=== PATIENT | female | born 1975 | race Caucasian/White ===

== ENCOUNTER → 2017-07-02 | Outpatient (REF) ==
[2017-07-02 21:39] LABS: THYROID STIMULATING HORMONE 2.76 uIU/mL (0.465-4.680)
== END ==
LOC: ZLAB.WCH 20:42
PROVIDERS: Nurse Practitioner Primary Care
DX: Z01.89 Encounter for other specified special examinations (principal)

== ENCOUNTER → 2018-04-12 | Outpatient (REF) | LOC: ZLAB.WCH 12:33 | DX: Z01.89 Encounter for other specified special examinations (principal) ==

== ENCOUNTER 2021-02-15 19:19 | Emergency (ER) | payer OTHER, BC ==
[~2021-02-15] VITALS: Ht 165.1 cm; Wt 83.6 kg
[2021-02-15] MEDS ORDERED: HCTZ 25MG TAB25 MG PO (20:34)
[2021-02-15 21:36] LABS: ALBUMIN 4.6 gm/dL (3.5-5.0); CALCIUM 9.4 mg/dL (8.4-10.2); CREATININE, serum 0.53 (0.52-1.25); TOTAL PROTEIN 8.5 gm/dL (6.4-8.2)
[2021-02-15 23:02] LABS: HEMOGLOBIN 14.3 g/dl (12.5-16.0); MEAN CELL VOLUME 92 fl (80.0-100.0); MEAN CORPUSCULAR HEMOGLOBIN 30 pg (27.0-31.0); MEAN CORPUSCULAR HGB CONC 33 g/dl (33.0-37.0); RED BLOOD COUNT 4.81 M/mm3 (4.10-5.30); REDCELL DISTRIBUTION WIDTH-CV 12.9 % (11.5-14.5)
[2021-02-15 23:07] LABS: PLATELET COUNT 29 K/mm3 (130-400)
[2021-02-15 23:08] LABS: BASO # 0.2 (0.0-0.2); BASO % 0.7 % (0.0-2.0); EOS % 0.1 % (0-4.0); GRAN # 18.9 (1.4-6.5); GRAN % 84.4 % (42.2-75.2); LYMPH # 2.3 (1.2-3.4); LYMPH % 10.1 % (20.0-51.0); MEAN PLATELET VOLUME 12.2 fl (7.4-10.4); MONO # 0.9 (0.1-0.6)
[2021-02-16 00:30] VITALS: BP 195/92; PULSE 80; TEMP 89
== END 2021-02-16 00:30 | disposition home or self-care (01) ==
LOC: COL.ER 19:19
PROVIDERS: Personal Emergency Response Attendant; Physician Assistant
DX: S93.401A Sprain of unspecified ligament of right ankle, initial encounter (principal); S30.1XXA Contusion of abdominal wall, initial encounter; D72.829 Elevated white blood cell count, unspecified; Z87.891 Personal history of nicotine dependence; V49.40XA Driver injured in collision with unspecified motor vehicles in traffic accident, initial encounter

== ENCOUNTER → 2022-10-02 | Outpatient (CLI) | payer BC ==
[~2022-10-02] MED LIST: HCTZ 25MG TAB25 MG PO
== END ==
LOC: MC.RAD 09:00
DX: Z12.31 Encounter for screening mammogram for malignant neoplasm of breast (principal)

== ENCOUNTER → 2023-12-17 | Outpatient (CLI) | payer BC ==
[~2023-12-17] VITALS: Ht 165.1 cm; Wt 85.4 kg
[~2023-12-17] MED LIST changes: +BENICAR 20MG TA20 MG PO; +HYGROTON50 MG PO; +LYLEQ0.35 MG PO; +MOBIC15 MG PO; +Triamcinolone 40 MG/ML 1 ML VIAL IJ SCH
[2023-12-17 09:36] VITALS: BP 131/82; PULSE 82; TEMP 98.2
[2023-12-17 10:30] VITALS: BP 128/82; PULSE 69
== END ==
LOC: COL.RAD 09:20
DX: M48.061 Spinal stenosis, lumbar region without neurogenic claudication (principal); M54.16 Radiculopathy, lumbar region
CPT/HCPCS: J0665; J3301